=== PATIENT | female | born 1970 ===

== ENCOUNTER 2017-01-31 22:26 | Emergency (ER) | payer SELFPAY ==
[2017-01-31 22:26] VITALS: BMI 29.2
[2017-01-31 22:30] VITALS: TEMP 98.4
[2017-01-31] MEDS ORDERED: Sodium Chloride 0.9% 1,000 ML IV ONE (23:34)
[2017-01-31] MEDS ORDERED: Aspirin 325 mg EC Tablets PO STA (23:34)
--- NOTE | 2017-01-31 23:35 | C.PDOC ---
History Of Present Illness A 46 y/o female c/o palpitations that began today. Pt notes that she had two beers, 2 shots of Shobha, and dinner, then started feeling palpitations while watching a movie. Pt denies chest pain, SOB, lightheadedness, fever, chills, blurred vision, LOC, dizziness, weakness, diaphoresis, N/V/D, jaw pain, lower extremity pain, back pain, or any other complaints. Time Seen by Provider: 01/31/17 23:34 Chief Complaint (Nursing): Palpitations History Per: Patient History/Exam Limitations: no limitations Onset/Duration Of Symptoms: Hrs Current Symptoms Are (Timing): Still Present Associated Symptoms: denies: Chest Pain Severity: Mild Exacerbating Factor(s): Pos: Other Recent travel outside of the [place]: No Additional History Per: Patient Past Medical History Reviewed: Historical Data, Nursing Documentation, Vital Signs Vital Signs: Last Vital Signs Temp 98.4 F 01/31/17 22:27 Pulse 100 H 01/31/17 22:27 Resp 18 01/31/17 22:27 BP 134/87 01/31/17 22:48 Pulse Ox 96 02/01/17 01:12 - Medical History PMH: Anxiety Denies: Bipolar Disorder, Depression, Personality Disorder, Post Traumatic Stress Disorder, Schizophrenia - [facility] Procedures IMMOBILIZ/WOUND ATTN NEC (04/17/14) Family History: States: Unknown Family Hx - Social History Hx Alcohol Use: No Hx Substance Use: No - Immunization History Hx Tetanus Toxoid Vaccination: No Hx Influenza Vaccination: No Hx Pneumococcal Vaccination: No Review Of Systems Constitutional: Negative for: Fever, Chills, Sweats Eyes: Negative for: Vision Change Cardiovascular: Positive for: Palpitations. Negative for: Chest Pain, Light Headedness Respiratory: Negative for: Shortness of Breath Gastrointestinal: Negative for: Nausea, Vomiting, Diarrhea Musculoskeletal: Negative for: Back Pain, Leg Pain, Other (Jaw pain) Skin: Negative for: Rash Neurological: Negative for: Weakness, Dizziness, Other (LOC) Psych: Negative for: Anxiety Physical Exam - Physical Exam Appears: Non-toxic, No Acute Distress Skin: Warm, Dry Head: Normacephalic Eye(s): bilateral: Normal Inspection Oral Mucosa: Moist Neck: Trachea Midline, Supple Chest: Symmetrical Cardiovascular: Rhythm Regular Respiratory: No Rales, No Rhonchi, No Wheezing Gastrointestinal/Abdominal: Soft, No Tenderness Back: No CVA Tenderness Extremity: Normal ROM Extremity: Bilateral: Normal Color And Temperature Neurological/Psych: Oriented x3, Normal Speech, Normal Cognition Gait: Steady ED Course And Treatment - Laboratory Results Result Diagrams: 01/31/17 23:48 01/31/17 23:48 ECG: Interpreted By Me, Viewed By Me ECG Rhythm: Sinus Rhythm (88), Nonspecific Changes O2 Sat by Pulse Oximetry: 96 (RA) Pulse Ox Interpretation: Normal Progress Note: EKG, Blood labs, Ecotrin, IV fluids Reevaluation Time: 01:13 Reassessment Condition: Improved Disposition Counseled Patient/Family Regarding: Studies Performed, Diagnosis, Need For Followup, Rx Given - Disposition Referrals: Raulito Sharp MD [Staff Provider] - Disposition: HOME/ ROUTINE Disposition Time: 23:34 Condition: FAIR Prescriptions: Ondansetron ODT [Zofran ODT] 1 odt PO BID PRN #6 odt PRN Reason: Nausea/Vomiting Instructions: Palpitations (ED), Alcohol Intoxication (DC) - Clinical Impression Clinical Impression: Palpitations, Alcohol intoxication - Scribe Statement The provider has reviewed the documentation as recorded by the Scribe Mary reardon All medical record entries made by the Scribe were at my direction and personally dictated by me. I have reviewed the chart and agree that the record accurately reflects my personal performance of the history, physical exam, medical decision making, and the department course for this patient. I have also personally directed, reviewed, and agree with the discharge instructions and disposition.
[2017-01-31] MEDS ORDERED: Aspirin 325 mg EC Tablets PO ONE (23:42)
[2017-01-31 23:59] LABS: BASO % 0.6 % (0.0-2.0); EOS # 0.2 K/uL (0.0-0.7); HEMATOCRIT 33.8 % (34.0-47.0); LYMPH # 3.8 K/uL (1.0-4.3); LYMPH % 47.7 % (20.0-40.0); MEAN CELL VOLUME 77.1 fL (81.0-99.0); MEAN CORPUSCULAR HEMOGLOBIN 23.9 pg (27.0-31.0); MONO # 0.6 K/uL (0.0-0.8); MONO % 7.7 % (0.0-10.0); NRBC % 0.1 % (0.0-2.0); RED CELL DISTRIBUTION WIDTH 15.7 % (11.5-14.5); WHITE BLOOD COUNT 7.9 K/uL (4.8-10.8)
[2017-02-01 00:03] LABS: RBC URINE < 1 /hpf (0-3); URINE BILIRUBIN NEGATIVE (NEGATIVE); URINE BLOOD NEGATIVE (NEGATIVE); URINE COLOR Colorless (YELLOW); URINE GLUCOSE (UA) NORMAL (Normal); URINE KETONE NEGATIVE (NEGATIVE); URINE LEUKOCYTE ESTERASE TRACE Leu/uL (Negative); URINE PROTEIN NEGATIVE (NEGATIVE); URINE UROBILINOGEN NORMAL mg/dL (0.2-1.0); WBC URINE 2 /hpf (0-5)
[2017-02-01 00:11] LABS: INR 0.9
[2017-02-01 00:21] LABS: CHLORIDE 108 mmol/L (98-107); SODIUM 145 mmol/L (132-148)
[2017-02-01 00:23] LABS: ALB/GLOB RATIO 1.2 (1.0-2.1); ALKALINE PHOSPHATASE 99 U/L (38-126); AST/SGOT 70 U/L (14-36); BILIRUBIN,TOTAL 0.5 mg/dL (0.2-1.3); BLOOD UREA NITROGEN 13 mg/dL (7-17); CARBON DIOXIDE 22 mmol/L (22-30); GFR AFRICAN-AMERICAN > 60; TOTAL PROTEIN 8.2 g/dL (6.3-8.3)
[2017-02-01 00:24] LABS: ALCOHOL SERUM 180 mg/dl (0-10); ALT/SGPT 46 U/L (9-52); CALCIUM 9.2 mg/dl (8.6-10.4); GLUCOSE,RANDOM 82 mg/dL (65-105)
[2017-02-01 00:54] LABS: THYROID STIMULATING HORMONE 1.97 mIU/L (0.46-4.68)
[2017-02-01 01:19] LABS: POTASSIUM 4.1 mmol/L (3.6-5.2)
[2017-02-01 01:27] VITALS: BP 120/70; PULSE 80; RESP 14; O2SAT 98
--- NOTE | 2017-02-02 07:54 | CARD ---
APPROVED REPORT EKG Measurement Heart [id number] <Conclusion> Normal sinus rhythm Possible Anterior infarct, age undetermined Abnormal ECG
== END 2017-02-01 01:27 | disposition home or self-care (01) ==
LOC: C.ER 22:26
DX: F10.120 Alcohol abuse with intoxication, uncomplicated (principal); Y90.6 Blood alcohol level of 120-199 mg/100 ml; R00.2 Palpitations
CPT/HCPCS: 80053; 81001; 84443; 84484; 85025; 85610; 85730; 93005; 99283; G0480; J7040